=== PATIENT | male | born 1945 | race Caucasian/White ===

== ENCOUNTER → 2018-07-07 09:49 | Outpatient (CLI) | payer OTHER, SELFPAY ==
--- NOTE | 2018-07-07 | DI.MRI.S_ITS ---
PROCEDURE: MR KNEE LT WO CON INDICATIONS: LEFT KNEE PAIN TECHNIQUE: Noncontrast sagittal PD fast spin echo and T2 fast spin echo with fat saturation, sagittal 3-D FLASH with fat saturation; coronal T1 spin echo and PD fast spin echo with fat saturation, and axial PD fast spin echo with fat saturation through the knee. COMPARISON: [facility], CR, XR KNEE ARTHRITIC SERIES BI, 06/01/2018, 12:27. [facility], MR, KNEE WITHOUT CONTRAST, 02/03/2012, 12:18. FINDINGS: Image quality: Excellent. Menisci: There is medial extrusion of the medial meniscus. There is linear oblique high T2 signal intensity traversing the medial meniscal body, demonstrating inferior articular surface extension. Amorphous high signal intensity within the posterior and medial meniscus is present, demonstrating inferior articular surface extension. Degenerative fraying of the free edge of the lateral meniscal body is present. Cruciate ligaments: The anterior and posterior cruciate ligaments appear intact. Medial structures: The medial collateral ligament appears intact. There is a small amount of fluid surrounding the medial collateral ligament. Visualized portions of the pes anserinus tendons appear normal. No abnormal bursal fluid. Lateral structures: The lateral collateral ligament demonstrates mild T2 signal is elevation within its femoral insertion site. long and short heads of the biceps femoris tendon appear intact. The popliteus tendon appears normal. Iliotibial band appears normal. Anterior structures: The quadriceps and patellar tendons appear intact. Patellar alignment is normal. No femoral trochlear dysplasia or ventral trochlear prominence. No edema in the infrapatellar fat pad. There is moderate prepatellar subcutaneous edema. Bones and cartilage: No bone marrow contusions or fractures. There is moderate tricompartmental periarticular osteophyte formation. There is moderate diffuse articular cartilage loss overlying the weightbearing aspects of the medial femoral condyle and medial tibial plateau. Focal region of moderate articular cartilage loss overlies the lateral patellar facet, measuring roughly 6 mm. Joint space: There is a small knee joint effusion and a trace Martin's cyst. Normal appearing synovial plicae are incidentally noted. IMPRESSION: 1. Medial meniscal tearing. 2. Degenerative fraying of free edge of lateral meniscal body. 3. Medial and patellofemoral compartment cartilage loss. 4. MCL strain. Partial-thickness lateral collateral ligament tear. 5. Knee joint effusion and Martin's cyst. 6. Prepatellar bursitis. Dictated by: Kelly Underwood M.D. on 07/07/2018 at 12:17 Approved by: Kelly Underwood M.D. on 07/07/2018 at 12:20
== END ==
PROVIDERS: Visit Provider Orthopaedic Surgery
DX: S83.242A Other tear of medial meniscus, current injury, left knee, initial encounter (principal); S83.412A Sprain of medial collateral ligament of left knee, initial encounter; S83.422A Sprain of lateral collateral ligament of left knee, initial encounter; M25.462 Effusion, left knee; M25.562 Pain in left knee; M70.42 Prepatellar bursitis, left knee
CPT/HCPCS: 73721

== ENCOUNTER → 2020-01-02 10:46 | Outpatient (CLI) | payer MEDICARE, SELFPAY ==
--- NOTE | 2020-01-02 | DI.MRI.S_ITS ---
PROCEDURE: MR KNEE RT WO CON INDICATIONS: RIGHT KNEE PAIN TECHNIQUE: Noncontrast sagittal PD fast spin echo and T2 fast spin echo with fat saturation, sagittal 3-D FLASH with fat saturation; coronal T1 spin echo and PD fast spin echo with fat saturation, and axial PD fast spin echo with fat saturation through the knee. COMPARISON: [facility], MR, KNEE WITHOUT CONTRAST, 02/03/2012, 12:18. [facility], MR, MR KNEE LT WO CON, 07/07/2018, 9:57. FINDINGS: Image quality: Excellent. Menisci: Circumferential macerated appearance of the medial meniscus, with minimal substance of the body visualized. This could reflect chronic postsurgical changes Lateral meniscus intact. Cruciate ligaments: Anterior cruciate ligament appears mildly thickened and demonstrates internal signal changes in T2 hyperintensity suggestive of mucoid degeneration. This appears progressed since prior study.. Posterior cruciate ligament appears intact. Medial structures: The medial collateral ligament appears intact. Semimembranosus tendon appears intact. Visualized portions of the pes anserinus tendons appear normal. No abnormal bursal fluid. Lateral structures: The lateral collateral ligament demonstrates thickening and intrasubstance signal change in keeping with low grade sprain, statistically chronic, although technically age indeterminate. Biceps femoris tendon appears intact. Popliteus tendon demonstrates thickening and intrasubstance signal changes distally. Iliotibial band appears intact. Lateral subcutaneous edema. Anterior structures: Quadriceps tendon intact. Medial and lateral patellofemoral ligaments intact. There is mild patellar tendinopathy. Prepatellar and superficial infrapatellar subcutaneous edema/fluid. Bones and cartilage: No focal marrow contusion or discrete low signal fracture line. Within the medial compartment, diffuse partial-thickness loss of the femoral and tibial articular cartilage Within the lateral compartment, diffuse surface fraying of the femoral tibial cartilage without focal defect. Within the patellofemoral compartment, full-thickness loss of the cartilage overlying the medial patellar facet. Subchondral central femoral trochlear osteophyte. There is diffuse partial-thickness loss of the femoral trochlear cartilage. Joint space: Mild joint effusion. No Martin's cyst. Large multiloculated ganglion at the proximal tibiofibular articulation. No specific evidence of intra-articular loose body. IMPRESSION: Circumferential diminutive appearance of the medial meniscus presumably postsurgical sequela and unchanged since 02/03/12. 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 Mild joint effusion Large multiloculated ganglion at the proximal tibiofibular articulation, unchanged. Patellar tendinopathy and anterior subcutaneous soft tissue swelling (increased since the prior study) Dictated by: Charlie Lester M.D. on 01/02/2020 at 13:36 Approved by: Charlie Lester M.D. on 01/02/2020 at 13:44
== END ==
LOC: MRI 10:50
PROVIDERS: PCP Orthopaedic Surgery Adult Reconstructive Orthopaedic Surgery; Referring Provider Orthopaedic Surgery Adult Reconstructive Orthopaedic Surgery; Visit Provider Orthopaedic Surgery Adult Reconstructive Orthopaedic Surgery
DX: M25.561 Pain in right knee (principal); M25.461 Effusion, right knee; M67.461 Ganglion, right knee
CPT/HCPCS: 73721